=== PATIENT | female | born 1995 | race American Indian/Alaskan Native ===

== ENCOUNTER 2021-11-20 08:00 | Outpatient (CLI) | payer OTHER ==
[2021-11-09 15:35] LABS: Hematocrit 28.6 % (30.3-42.9); Hemoglobin 9.3 gm/dl (10.1-14.3); Mean Corpuscular HGB Conc 33 % (30-34); Mean Corpuscular Volume 81 fl (79-97); Platelet Count 226 K/mm3 (140-440); Red Blood Count 3.53 M/mm3 (3.65-5.03); Red Cell Distribution Width 15.4 % (13.2-15.2)
[2021-11-09 15:50] LABS: Alanine Aminotransferase 15 units/L (7-56); Uric Acid 8.8 mg/dL (3.5-7.6)
[2021-11-09 16:29] LABS: Bacteria,Urine 1+ /HPF (Negative); Bilirubin,Urine NEG (Negative); Blood,Urine NEG (Negative); Color,Urine Straw (Yellow); RBC,Urine < 1.0 /HPF (0.0-6.0); Urobilinogen,Urine < 2.0 mg/dL (<2.0)
[2021-11-09 17:18] VITALS: BP 138/94
[~2021-11-20 08:00] MED LIST: ACETAMINOPHEN 325 MG TAB PO PRN; BUTORPHANOL 2 MG/1 ML INJ IV PRN; CARBOPROST TROMETHAMINE 250 MCG/1 ML INJ IM PRN; LACTATED RINGERS 1,000 ML IV SCH; LIDOCAINE (2%) 20 MG/1 ML VIAL 20 ML MDV INFILTRATI ONE; LOPERAMIDE 2 MG CAP PO PRN; METHYLERGONOVINE MALEATE 0.2 MG/ML VIAL IM PRN; MINERAL OIL 30 ML ORAL LIQD PO PRN; OXYTOCIN 10 UNIT/1 ML INJ IM PRN; TERBUTALINE 1 MG/1 ML INJ SUB-Q PRN; ePHEDrine SULFATE 50 MG/1 ML INJ IV PRN; fentaNYL 100 MCG/2 ML INJ IV PRN; miSOPROStol 200 MCG TAB PR PRN
--- NOTE | 2021-11-21 09:39 | Short Stay Summary ---
Short Stay Documentation Date of service: 11/09/21 Narrative H&P: 26-year-old G5, P3 at 35+5 weeks who presents with elevated blood pressures. The patient presents to labor and delivery triage for evaluation for preeclampsia. - History Principal diagnosis: -induced hypertension Past Medical History: other (-induced hypertension) Past Surgical History: No surgical history Social history: no significant social history - Allergies and Medications Current Medications: Allergies phenazopyridine [From Pyridium] Allergy (Verified 11/09/21 15:21) Hives Home Medications Medication Instructions Recorded Confirmed Last Taken Type Aspirin 81 tab PO DAILY 11/09/21 11/09/21 11/08/21 13:00 History Iron 1 tab PO DAILY 11/09/21 11/09/21 Unknown History Vitamin 1 tab PO DAILY 11/09/21 11/09/21 11/08/21 13:00 History glyBURIDE [Diabeta] 2.5 mg PO DAILY 11/09/21 11/09/21 11/09/21 11:00 History - Physical exam General appearance: no acute distress Integumentary: no rash HEENT: Atraumatic Lungs: Clear to auscultation Breasts: deferred - Hospital course Hospital course: The patient was evaluated in triage for elevated blood pressures. She had normalization of her blood pressures on bedrest. PI labs were performed and were found to be normal. The patient was discharged with instructions to complete a 24-hour urine collection. - Disposition Condition at discharge: Good Disposition: 01 HOME / SELF CARE / HOMELESS Short Stay Discharge Plan Activity: other (Modified bedrest) Diet: regular Additional Instructions: 24 Hour urine collection ends on November 10, 2021 @ 03:27 pm. Return 24 hour urine jug to the hospital at [address] [place] [address]., [place] [address] on November 10, 2021. Follow up with: SOSA LOO MD [Primary Care Provider] - 7 Days Forms: [facility] Discharge Summary
== END 2021-11-20 08:01 | disposition home or self-care (01) ==
LOC: TRG 08:00 → EDSTATUS 11-21 15:55 → TRG 11-21 15:56
PROVIDERS: ATTEND Obstetrics & Gynecology
DX: O13.3 Gestational [pregnancy-induced] hypertension without significant proteinuria, third trimester (principal); Z3A.35 35 weeks gestation of pregnancy
CPT/HCPCS: 81001; 82565; 83615; 84156; 84450; 84460; 84550; 85027; 86592; 86850; 86900; 86901; G0378

== ENCOUNTER 2021-11-22 05:27 | Inpatient (IN) | payer OTHER, MEDICAID ==
[2021-11-22] MEDS ORDERED: ACETAMINOPHEN 325 MG TAB PO PRN (06:28)
[2021-11-22] MEDS ORDERED: OXYTOCIN 10 UNIT/1 ML INJ IM PRN (06:28)
[2021-11-22] MEDS ORDERED: miSOPROStol 25 MCG TAB VG ONE (06:28)
[2021-11-22] MEDS ORDERED: TERBUTALINE 1 MG/1 ML INJ SUB-Q PRN (06:28)
[2021-11-22] MEDS ORDERED: LIDOCAINE (2%) 20 MG/1 ML VIAL 20 ML MDV INFILTRATI ONE (06:28)
[2021-11-22] MEDS ORDERED: miSOPROStol 200 MCG TAB PR PRN (06:28)
[2021-11-22] MEDS ORDERED: fentaNYL 100 MCG/2 ML INJ IV PRN (06:28)
[2021-11-22] MEDS ORDERED: CARBOPROST TROMETHAMINE 250 MCG/1 ML INJ IM PRN (06:28)
[2021-11-22] MEDS ORDERED: ePHEDrine SULFATE 50 MG/1 ML INJ IV PRN (06:28)
[2021-11-22] MEDS ORDERED: NALOXONE 0.4 MG/1 ML INJ IV PRN (06:28)
[2021-11-22] MEDS ORDERED: LOPERAMIDE 2 MG CAP PO PRN (06:28)
[2021-11-22] MEDS ORDERED: ONDANSETRON 4 MG/2 ML INJ IV PRN (06:28)
[2021-11-22] MEDS ORDERED: MINERAL OIL 30 ML ORAL LIQD PO PRN (06:28)
[2021-11-22] MEDS ORDERED: BUTORPHANOL 2 MG/1 ML INJ IV PRN (06:28)
[2021-11-22] MEDS: LACTATED RINGERS 1,000 ML IV SCH ×3 (06:50→22:35)
[2021-11-22 06:57] LABS: Hemoglobin 9.7 gm/dl (10.1-14.3); Mean Corpuscular HGB Conc 31 % (30-34); Mean Corpuscular Volume 82 fl (79-97); Platelet Count 219 K/mm3 (140-440); Red Blood Count 3.78 M/mm3 (3.65-5.03); Red Cell Distribution Width 16.7 % (13.2-15.2)
[2021-11-22] MEDS ORDERED: OXYTOCIN DRIP 30 UNITS/500 ML BAG IV SCH ×2 (07:00)
--- NOTE | 2021-11-22 08:26 | History and Physical Report ---
History of Present Illness Date of examination: 11/22/21 Date of admission: 11/22/21 05:27 Chief complaint: IOL secondary to Chtn and GDM History of present illness: 26 yo, @ 37.4 wks, initiated care with [place] [facility] Telephone Answering Service [facility] at 12.3 wks gestation. Her has been complicated by Type II DM (co-managed by [facility] specialist) and PIH. Reports to [facility] for scheduled IOL. +FM. Denies any VB or LOF. Labs: O+, antibody negative; rubella immune; VDRL negative; urine culture negative; HBsAg negative; HIV negative; GC/Chlamydia/Trichomonas negative; 24 hr urine 168/ 223; AST 18; ALT 10; GBS negative. Past History Past Medical History: diabetes (Type II) Past Surgical History: tonsillectomy Family/Genetic History: diabetes, other (Lupus) Social history: , lives with family, full code. denies: smoking, alcohol abuse, prescription drug abuse, IV drug use - Obstetrical History Expected Date of Delivery: 12/09/21 Actual Gestation: 37 Week(s) 4 Day(s) : 5 Para: 3 Hx # Term Pregnancies: 3 Number of Pregnancies: 0 Spontaneous Abortions: 1 Induced : 0 Number of Living Children: 3 #1 Infant Gender: Female year: 2,[birth year] Birthweight: 2.637 kg Method of Delivery: Vaginal Gestational age at delivery: 40 Complications: none #2 Gender: Female year: 2,[birth year] Birthweight: 3.289 kg Method of Delivery: Vaginal Complications: none #3 Gender: Female year: 2,019 Birthweight: 2.722 kg Method of Delivery: Vaginal Gestational age at delivery: 40 Complications: none Medications and Allergies Allergies Allergy/AdvReac Type Severity Reaction Status Date / Time phenazopyridine Allergy Hives Verified 11/09/21 15:21 [From Pyridium] Home Medications Medication Instructions Recorded Confirmed Last Taken Type Aspirin 81 tab PO DAILY 11/09/21 11/09/21 11/08/21 13:00 History Iron 1 tab PO DAILY 11/09/21 11/09/21 Unknown History Vitamin 1 tab PO DAILY 11/09/21 11/09/21 11/08/21 13:00 History glyBURIDE [Diabeta] 2.5 mg PO DAILY 11/09/21 11/09/21 11/09/21 11:00 History Active Meds: Active Medications Acetaminophen (Acetaminophen 325 Mg Tab) 650 mg PO Q4H PRN PRN Reason: Pain, Mild (1-3) Butorphanol Tartrate (Butorphanol 2 Mg/1 Ml Inj) 1 mg IV Q2H PRN PRN Reason: Pain, Moderate(4-6) LABOR PAIN Carboprost Tromethamine (Carboprost Tromethamine 250 Mcg/1 Ml Inj) 250 mcg IM ONCE PRN PRN Reason: Uterine Bleeding Ephedrine Sulfate (Ephedrine Sulfate 50 Mg/1 Ml Inj) 10 mg IV Q2M PRN PRN Reason: Hypotension Fentanyl (Fentanyl 100 Mcg/2 Ml Inj) 100 mcg IV Q2H PRN PRN Reason: Pain,Severe (7-10) LABOR PAIN Oxytocin/Sodium Chloride (Pitocin/Ns 30 Unit/500ml) 30 units in 500 mls @ 2 mls/hr IV TITR GATO; Protocol Lactated Ringer's (Lactated Ringers) 1,000 mls @ 125 mls/hr IV DIRECT GATO Last Admin: 11/22/21 06:50 Dose: 125 mls/hr Oxytocin/Sodium Chloride (Pitocin/Ns 30 Unit/500ml) 30 units in 500 mls @ 40 mls/hr IV TITR GATO; Protocol Loperamide HCl (Loperamide 2 Mg Cap) 2 mg PO ONCE PRN PRN Reason: give with Hemabate Mineral Oil (Mineral Oil 30 Ml Oral Liqd) 30 ml PO QHS PRN PRN Reason: Constipation Misoprostol (Misoprostol 200 Mcg Tab) 800 mcg WV ONCE PRN PRN Reason: Uterine Bleeding Naloxone HCl (Naloxone 0.4 Mg/1 Ml Inj) 0.1 mg IV Q2MIN PRN PRN Reason: Res Rate </= 8 or 02 SAT < 92% Ondansetron HCl (Ondansetron 4 Mg/2 Ml Inj) 4 mg IV Q8H PRN PRN Reason: Nausea And Vomiting Oxytocin (Oxytocin 10 Unit/1 Ml Inj) 10 unit IM ONCE PRN PRN Reason: Uterine Bleeding Terbutaline Sulfate (Terbutaline 1 Mg/1 Ml Inj) 0.25 mg SUB-Q ONCE PRN PRN Reason: Hyperstimulation/Hypertonicity Review of Systems All systems: negative Cardiovascular: edema (noted on lower abdomen with some tenderness noted in area) Genitourinary: no leakage of fluid - Vital Signs Vital signs: Vital Signs Temp Resp Pulse Ox 98.4 F 14 99 11/22/21 05:39 11/22/21 05:39 11/22/21 05:39 Temp Pulse Resp BP Pulse Ox 98.2 F 95 H 15 141/95 97 11/22/21 07:04 11/22/21 08:24 11/22/21 07:04 11/22/21 08:21 11/22/21 08:24 - Physical Exam Breasts: Positive: normal Cardiovascular: Normal S1 Lungs: Positive: Normal air movement Abdomen: Positive: tenderness (with some edema noted - lower abdomen), other (gravid) Uterus: Positive: enlarged (S=D) Extremities: Positive: normal Deep Tendon Reflex Grade: Normal +2 - Obstetrical FHR: category 1 Uterine Contraction Monitor Mode: External Cervical Dilatation: 1 (per RN) Cervical Effacement Percentage: 50 station: -4 Uterine Contraction Pattern: Irregular Uterine Tone Measurement Phase: Resting Uterine Contraction Intensity: Mild Results Result Diagrams: 11/22/21 06:00 Abnormal lab results 11/22/21 Range/Units 06:00 Hgb 9.7 L (10.1-14.3) gm/dl MCH 26 L (28-32) pg RDW 16.7 H (13.2-15.2) % All other labs normal. Assessment and Plan - Patient Problems (1) Type II diabetes mellitus Current Visit: Yes Status: Acute Qualifiers: Diabetes mellitus complication status: without complication Plan to address problem: Monitor blood glucose levels as ordered (2) Encounter for induction of labor Current Visit: Yes Status: Acute Plan to address problem: Continue cytotec as tolerated per orders Pain meds as desired per orders Anticipate
[2021-11-22] MEDS ORDERED: miSOPROStol 25 MCG TAB PO ONE (11:17)
--- NOTE | 2021-11-22 16:59 | Progress Note ---
Assessment and Plan - Patient Problems (1) Type II diabetes mellitus Current Visit: Yes Status: Acute Qualifiers: Diabetes mellitus complication status: without complication Plan to address problem: Monitor blood glucose levels as ordered (2) Encounter for induction of labor Current Visit: Yes Status: Acute Plan to address problem: S/P cytotec x 2 doses Allow to eat Initiate low-dose Pitocin as tolerated Pain meds as desired per orders Anticipate Subjective - Subjective Date of service: 11/22/21 Principal diagnosis: IOL secondary to DM Interval history: 26 yo, @ 37.4 wks, initiated care with [place] [facility] Accounts Adjustable Clerk at 12.3 wks gestation. Her has been complicated by Type II DM (co-managed by [facility] specialist) and PIH. Reports to [facility] for scheduled IOL. +FM. Denies any VB or LOF. Labs: O+, antibody negative; rubella immune; VDRL negative; urine culture negative; HBsAg negative; HIV negative; GC/Chlamydia/Trichomonas negative; 24 hr urine 168/ 223; AST 18; ALT 10; GBS negative. Patient reports: movement normal, contractions, no new complaints, no loss of fluid, no vaginal bleeding Objective - Vital Signs Vital Signs: Vital Signs - 12hr 11/22/21 11/22/21 11/22/21 05:39 05:56 06:00 Temperature 98.4 F Pulse Rate 87 97 H Respiratory 14 Rate Blood Pressure 131/68 Blood Pressure [Left] O2 Sat by Pulse 99 99 Oximetry 11/22/21 11/22/21 11/22/21 06:01 06:06 06:11 Temperature Pulse Rate 99 H 86 89 Respiratory Rate Blood Pressure Blood Pressure [Left] O2 Sat by Pulse 99 99 100 Oximetry 11/22/21 11/22/21 11/22/21 06:16 06:21 06:26 Temperature Pulse Rate 85 91 H 80 Respiratory Rate Blood Pressure Blood Pressure [Left] O2 Sat by Pulse 100 100 100 Oximetry 11/22/21 11/22/21 11/22/21 06:31 06:36 06:41 Temperature Pulse Rate 81 79 85 Respiratory Rate Blood Pressure Blood Pressure [Left] O2 Sat by Pulse 99 99 99 Oximetry 11/22/21 11/22/21 11/22/21 06:42 06:48 06:49 Temperature Pulse Rate 94 H 110 H Respiratory Rate Blood Pressure Blood Pressure [Left] O2 Sat by Pulse 93 76 L 98 Oximetry 11/22/21 11/22/21 11/22/21 06:54 06:59 07:04 Temperature 98.2 F Pulse Rate 85 86 90 Respiratory 15 Rate Blood Pressure Blood Pressure [Left] O2 Sat by Pulse 99 98 99 Oximetry 11/22/21 11/22/21 11/22/21 07:09 07:14 07:19 Temperature Pulse Rate 84 85 77 Respiratory Rate Blood Pressure Blood Pressure [Left] O2 Sat by Pulse 99 100 99 Oximetry 11/22/21 11/22/21 11/22/21 07:21 07:24 07:29 Temperature Pulse Rate 81 81 88 Respiratory Rate Blood Pressure Blood Pressure [Left] O2 Sat by Pulse 86 99 97 Oximetry 11/22/21 11/22/21 11/22/21 07:34 07:39 07:44 Temperature Pulse Rate 92 H 84 86 Respiratory Rate Blood Pressure Blood Pressure [Left] O2 Sat by Pulse 98 99 99 Oximetry 11/22/21 11/22/21 11/22/21 07:49 07:54 07:59 Temperature Pulse Rate 80 96 H 82 Respiratory Rate Blood Pressure Blood Pressure [Left] O2 Sat by Pulse 99 98 99 Oximetry 11/22/21 11/22/21 11/22/21 08:19 08:21 08:23 Temperature Pulse Rate 84 84 90 Respiratory Rate Blood Pressure 141/95 Blood Pressure [Left] O2 Sat by Pulse 97 94 Oximetry 11/22/21 11/22/21 11/22/21 08:24 08:29 08:30 Temperature Pulse Rate 95 H 101 H 100 H Respiratory Rate Blood Pressure Blood Pressure [Left] O2 Sat by Pulse 97 95 93 Oximetry 11/22/21 11/22/21 11/22/21 08:34 08:38 08:39 Temperature Pulse Rate 97 H 95 H 90 Respiratory Rate Blood Pressure Blood Pressure [Left] O2 Sat by Pulse 97 94 87 Oximetry 11/22/21 11/22/21 11/22/21 08:44 08:49 08:54 Temperature Pulse Rate 88 85 90 Respiratory Rate Blood Pressure Blood Pressure [Left] O2 Sat by Pulse 99 99 99 Oximetry 11/22/21 11/22/21 11/22/21 08:59 09:04 09:09 Temperature Pulse Rate 94 H 94 H 87 Respiratory Rate Blood Pressure Blood Pressure [Left] O2 Sat by Pulse 99 99 98 Oximetry 11/22/21 11/22/21 11/22/21 09:14 09:18 09:19 Temperature Pulse Rate 92 H 83 90 Respiratory Rate Blood Pressure 137/91 Blood Pressure [Left] O2 Sat by Pulse 99 100 Oximetry 11/22/21 11/22/21 11/22/21 09:24 09:29 09:34 Temperature Pulse Rate 87 96 H 85 Respiratory Rate Blood Pressure Blood Pressure [Left] O2 Sat by Pulse 98 98 100 Oximetry 11/22/21 11/22/21 11/22/21 09:52 09:57 10:02 Temperature Pulse Rate 87 82 Respiratory Rate Blood Pressure Blood Pressure [Left] O2 Sat by Pulse 100 98 98 Oximetry 11/22/21 11/22/21 11/22/21 10:07 10:12 10:17 Temperature Pulse Rate 79 78 84 Respiratory Rate Blood Pressure Blood Pressure [Left] O2 Sat by Pulse 98 98 98 Oximetry 11/22/21 11/22/21 11/22/21 10:18 10:22 10:27 Temperature Pulse Rate 85 79 89 Respiratory Rate Blood Pressure 142/93 Blood Pressure [Left] O2 Sat by Pulse 99 100 Oximetry 11/22/21 11/22/21 11/22/21 10:28 10:32 10:44 Temperature Pulse Rate 94 H 95 H 103 H Respiratory Rate Blood Pressure Blood Pressure [Left] O2 Sat by Pulse 0 L 99 97 Oximetry 11/22/21 11/22/21 11/22/21 10:49 10:54 10:59 Temperature Pulse Rate 82 82 83 Respiratory Rate Blood Pressure Blood Pressure [Left] O2 Sat by Pulse 98 99 99 Oximetry 11/22/21 11/22/21 11/22/21 11:04 11:09 11:14 Temperature Pulse Rate 79 80 82 Respiratory Rate Blood Pressure Blood Pressure [Left] O2 Sat by Pulse 99 98 99 Oximetry 11/22/21 11/22/21 11/22/21 11:19 11:24 11:29 Temperature 98.2 F Pulse Rate 81 87 77 Respiratory 15 Rate Blood Pressure 140/93 Blood Pressure 140/93 [Left] O2 Sat by Pulse 90 100 100 Oximetry 11/22/21 11/22/21 11/22/21 11:34 11:39 11:44 Temperature Pulse Rate 80 91 H 89 Respiratory Rate Blood Pressure Blood Pressure [Left] O2 Sat by Pulse 99 100 99 Oximetry 11/22/21 11/22/21 11/22/21 11:56 12:01 12:06 Temperature Pulse Rate 72 97 H 91 H Respiratory Rate Blood Pressure Blood Pressure [Left] O2 Sat by Pulse 100 100 98 Oximetry 11/22/21 11/22/21 11/22/21 12:11 12:16 12:18 Temperature Pulse Rate 90 85 90 Respiratory Rate Blood Pressure 130/87 Blood Pressure [Left] O2 Sat by Pulse 98 99 Oximetry 11/22/21 11/22/21 11/22/21 12:19 12:21 12:26 Temperature Pulse Rate 90 95 H 91 H Respiratory Rate Blood Pressure Blood Pressure [Left] O2 Sat by Pulse 93 99 98 Oximetry 11/22/21 11/22/21 11/22/21 12:31 12:36 12:41 Temperature Pulse Rate 93 H 88 92 H Respiratory Rate Blood Pressure Blood Pressure [Left] O2 Sat by Pulse 99 96 99 Oximetry 11/22/21 11/22/21 11/22/21 12:57 12:58 13:02 Temperature Pulse Rate 79 83 86 Respiratory Rate Blood Pressure Blood Pressure [Left] O2 Sat by Pulse 96 94 97 Oximetry 11/22/21 11/22/21 11/22/21 13:07 13:12 13:17 Temperature Pulse Rate 94 H 83 92 H Respiratory Rate Blood Pressure Blood Pressure [Left] O2 Sat by Pulse 99 99 97 Oximetry 11/22/21 11/22/21 11/22/21 13:18 13:22 13:27 Temperature Pulse Rate 95 H 92 H 95 H Respiratory Rate Blood Pressure 126/90 Blood Pressure [Left] O2 Sat by Pulse 94 94 90 Oximetry 11/22/21 11/22/21 11/22/21 13:50 13:55 14:00 Temperature Pulse Rate 93 H 106 H 91 H Respiratory Rate Blood Pressure Blood Pressure [Left] O2 Sat by Pulse 98 97 98 Oximetry 11/22/21 11/22/21 11/22/21 14:05 14:10 14:15 Temperature Pulse Rate 85 88 86 Respiratory Rate Blood Pressure Blood Pressure [Left] O2 Sat by Pulse 100 99 98 Oximetry 11/22/21 11/22/21 11/22/21 14:19 14:20 14:25 Temperature Pulse Rate 88 90 95 H Respiratory Rate Blood Pressure 138/83 Blood Pressure [Left] O2 Sat by Pulse 98 98 Oximetry 11/22/21 11/22/21 11/22/21 14:30 14:32 14:35 Temperature Pulse Rate 90 59 L 92 H Respiratory Rate Blood Pressure Blood Pressure [Left] O2 Sat by Pulse 99 79 L 98 Oximetry 11/22/21 11/22/21 11/22/21 14:40 14:45 15:03 Temperature Pulse Rate 99 H 90 93 H Respiratory Rate Blood Pressure Blood Pressure [Left] O2 Sat by Pulse 98 97 98 Oximetry 11/22/21 11/22/21 11/22/21 15:08 15:13 15:19 Temperature Pulse Rate 92 H 92 H 83 Respiratory Rate Blood Pressure 133/83 Blood Pressure [Left] O2 Sat by Pulse 98 99 100 Oximetry 11/22/21 11/22/21 11/22/21 15:24 15:29 15:34 Temperature Pulse Rate 101 H 92 H 85 Respiratory Rate Blood Pressure Blood Pressure [Left] O2 Sat by Pulse 100 100 100 Oximetry 11/22/21 11/22/21 11/22/21 15:39 15:44 15:49 Temperature Pulse Rate 84 85 94 H Respiratory Rate Blood Pressure Blood Pressure [Left] O2 Sat by Pulse 100 100 99 Oximetry 11/22/21 11/22/21 11/22/21 15:54 15:59 16:28 Temperature Pulse Rate 85 79 Respiratory Rate Blood Pressure Blood Pressure [Left] O2 Sat by Pulse 100 100 85 Oximetry 11/22/21 11/22/21 11/22/21 16:29 16:33 16:38 Temperature Pulse Rate 93 H 88 92 H Respiratory Rate Blood Pressure Blood Pressure [Left] O2 Sat by Pulse 86 99 98 Oximetry 11/22/21 11/22/21 11/22/21 16:43 16:48 16:53 Temperature Pulse Rate 91 H 83 103 H Respiratory Rate Blood Pressure Blood Pressure [Left] O2 Sat by Pulse 100 99 100 Oximetry - Exam Breasts: deferred Cardiovascular: Regular rate Lungs: Normal air movement FHR: category 1 Uterine Contraction Monitor Mode: External Cervical Dilatation: 1 (per RN) Cervical Effacement Percentage: 60 station: -3 Uterine Contraction Frequency (min): 4-5 Uterine Contraction Pattern: Irregular Uterine Tone Measurement Phase: Resting Uterine Contraction Intensity: Mild - Labs Labs: Abnormal Labs 11/22/21 11/22/2122 06:00 11:26 15:50 Hgb 9.7 L MCH 26 L RDW 16.7 H POC Glucose 68 L 111 H Laboratory Results - last 24 hr 11/22/21 11/22/21 11/22/21 06:00 06:00 06:00 WBC 5.5 RBC 3.78 Hgb 9.7 L Hct 31.0 MCV 82 MCH 26 L MCHC 31 RDW 16.7 H Plt Count 219 POC Glucose Syphilis IgG/IgM Ab Nonreactive SARS-CoV-2 (PCR) Blood Type O POSITIVE Antibody Screen Negative 11/22/21 11/22/21 11/22/21 07:11 09:15 11:26 WBC RBC Hgb Hct MCV MCH MCHC RDW Plt Count POC Glucose 78 68 L Syphilis IgG/IgM Ab SARS-CoV-2 (PCR) Negative Blood Type Antibody Screen 11/22/21 15:50 WBC RBC Hgb Hct MCV MCH MCHC RDW Plt Count POC Glucose 111 H Syphilis IgG/IgM Ab SARS-CoV-2 (PCR) Blood Type Antibody Screen
[2021-11-23] MEDS: LACTATED RINGERS 1,000 ML IV SCH (07:15)
[2021-11-23] MEDS ORDERED: ePHEDrine SULFATE 50 MG/1 ML INJ IV PRN (07:36)
[2021-11-23] MEDS ORDERED: NALOXONE 2 MG/2 ML INJ IV PRN (07:36)
[2021-11-23] MEDS ORDERED: fentaNYL-BUPIV 2 MCG/ML-0.125% 200 MCG/100 ML BAG EPIDURAL SCH (08:00)
[2021-11-23] MEDS ORDERED: BUPIVACAINE/PF (0.25%) 2.5 MG/ML 10 ML VIAL INFILTRATI ONE (08:50)
--- NOTE | 2021-11-23 09:10 | Anesthesia Consultation ---
Anesthesia Consult and Med Hx Date of service: 11/23/21 - Airway Anesthetic Teeth Evaluation: Good ROM Head & Neck: Adequate Mental/Hyoid Distance: Adequate Mallampati Class: Class II Intubation Access Assessment: Probably Good - Pre-Operative Health Status ASA Pre-Surgery Classification: ASA3 Proposed Anesthetic Plan: Epidural - Pulmonary Hx Smoking: No Hx Asthma: No Hx Sleep Apnea: No - Cardiovascular System Hx Hypertension: Yes Hx Heart Attack/AMI: No - Central Nervous System Hx Neuromuscular Disorder: No Hx Seizures: No Hx Psychiatric Problems: No - Gastrointestinal Hx Gastroesophageal Reflux Disease: No - Endocrine Hx Renal Disease: No Hx Liver Disease: No Hx Non-Insulin Dependent Diabetes: Yes (gestationial) Hx Hypothyroidism: No Hx Hyperthyroidism: No - Hematic Hx Anemia: No Hx Sickle Cell Disease: No - Other Systems Hx Alcohol Use: No Hx Substance Use: No Hx Cancer: No Hx Obesity: Yes (BMI 34)
--- NOTE | 2021-11-23 09:13 | Progress Note ---
Labor Epidural - Labor Epidural Start Time: 08:21 Stop Time: 08:50 Performed by:: CONRAD OG (GUILLERMO Lim) Procedure: Patient is requesting epidural for labor pain. H&P and labs reviewed. Procedure explained, questions answered, consent obtained. Patient placed in sitting position with monitors applied. Timeout performed immediately before start of procedure. Prep/drape in usual sterile fashion. Skin localized 3 mL 1% lidocaine at L[3]-L-4] interspace. 17-gauge Touhy epidural needle advanced to MATY with saline at [7] cm x 2 attempt. No blood/CSF noted via epidural needle. Epidural catheter advanced to [12] cm. Negative aspiration for blood and CSF via catheter, negative response to test dose 3 ml 1.5% lidocaine w/ Epi. Sterile dressing applied followed by tape reinforcement. Patient tolerated procedure well. No immediate complications noted.
--- NOTE | 2021-11-23 09:50 | Procedure Note ---
OB Delivery Note - Delivery Date of Delivery: 11/23/21 Surgeon: SOSA LOO Estimated blood loss: other (400 mL) - Vaginal Delivery presentation: vertex Delivery position: OA Intrapartum events: none, uterine atony Delivery augmentation: pitocin Delivery monitor: external FHT, external uterine Route of delivery: Delivery placenta: spontaneous Delivery cord: nuchal cord, 3 umbilical vessels Episiotomy: none Delivery laceration: none Anesthesia: epidural Delivery comments: The patient progressed to complete complete +1 post to deliver a live-born male with Apgars of 8 and 9 weight 8 pounds 2 ounces. After delivery of the head the infant was noted to have a double nuchal cord that was manually reduced. Delivery of the anterior shoulder occurred with gentle downward pressure. After delivery the infant was bulb suctioned cord was clamped and cut and the was placed on the warmer. The placenta delivered spontaneously intact with a three-vessel cord. No lacerations were noted. The patient was noted to have uterine atony after the delivery with estimated blood loss of 400 mL that resolved with rectal Cytotec and uterine massage. - A at 1 minute: 8 at 5 minutes: 9 Gender: Male (Weight 8 pounds 2 ounces)
[2021-11-23] MEDS ORDERED: diphenhydrAMINE 25 MG CAP PO PRN (09:51)
[2021-11-23] MEDS ORDERED: MAGNESIUM HYDROXIDE (MOM) ORAL LIQD UDC PO PRN (09:51)
[2021-11-23] MEDS ORDERED: PROMETHAZINE 25 MG RECT SUPP PR PRN (09:51)
[2021-11-23] MEDS ORDERED: LANOLIN/ZINC/DIMETHICONE (LANSINOH) 7 GM TP PRN (09:51)
[2021-11-23] MEDS ORDERED: ONDANSETRON 4 MG/2 ML INJ IV PRN (09:51)
[2021-11-23] MEDS ORDERED: WITCH HAZEL/ GLYCERIN PAD TP PRN (09:51)
[2021-11-23] MEDS ORDERED: PROMETHAZINE 25 MG TAB PO PRN (09:51)
[2021-11-23] MEDS ORDERED: ACETAMINOPHEN 325 MG TAB PO PRN (09:52)
[2021-11-23] MEDS ORDERED: HYDROcodone/ACETAMINOPHEN 5-325 MG TAB PO PRN (09:52)
[2021-11-23] MEDS: IBUPROFEN 800 MG TAB PO SCH (10:46)
--- NOTE | 2021-11-23 11:11 | Post Anesthesia Evaluation ---
- Post Anesthesia Evaluation Patient Participated: Yes Airway Patent: Yes Stable Respiratory Function: Yes Nausea/Vomiting: No Temp > 96.8F: Yes Pain Manageable: Yes Adequeate Hydration: Yes Anesthesia Complications: No Block Receding Appropriately: Yes Patient on Ventilator: No
[2021-11-23 20:50] LABS: Hemoglobin 7.3 gm/dl (10.1-14.3)
[2021-11-24] MEDS: IBUPROFEN 800 MG TAB PO SCH ×4 (00:37→23:08)
[2021-11-24] MEDS ORDERED: TETANUS,DIPH,PERTUSS(ACELL) VACCINE 0.5 ML SYRINGE IM ONE (06:00)
[2021-11-24] MEDS ORDERED: FLU VACC QUAD 2021-22(6MOS UP)/PF 60 MCG/0.5 ML SYRINGE IM ONE (12:00)
--- NOTE | 2021-11-24 12:48 | Discharge Summary ---
Providers - Providers Date of Admission: 11/22/21 06:28 Date of discharge: 11/25/21 Attending physician: GALILEO HERZOG Primary care physician: GALILEO HERZOG Hospitalization Reason for admission: induction of labor Delivery: Episiotomy: none Laceration: none Other procedures: none complications: none Discharge diagnosis: IUP at term delivered, other (anemia) baby: male Hospital course: 26 yo, @ 37.4 wks, initiated care with [place] [facility] Scheduling Agent at 12.3 wks gestation. Her has been complicated by Type II DM (co-managed by [facility] specialist) and PIH. Reports to [facility] for scheduled IOL. +FM. Denies any VB or LOF. Labs: O+, antibody negative; rubella immune; VDRL negative; urine culture negative; HBsAg negative; HIV negative; GC/Chlamydia/Trichomonas negative; 24 hr urine 168/ 223; AST 18; ALT 10; GBS negative. Delivered viable male infant via . course has been uncomplicated and met d/c criteria on PPD#2. Condition at discharge: Good Disposition: 01 HOME / SELF CARE / HOMELESS - Discharge Diagnoses (1) Type II diabetes mellitus Status: Acute Qualifiers: Diabetes mellitus complication status: without complication (2) Status post normal vaginal delivery Status: Acute (3) Anemia Status: Acute Qualifiers: Anemia type: iron deficiency Comment: Asymptomatic Increase iron rich foods into diet Continue daily iron supplementation as directed Plan - Discharge Medications Prescriptions: Ibuprofen [Motrin 800 MG tab] 800 mg PO Q8HR #30 tablet - Provider Discharge Summary Activity: routine, no sex for 6 weeks, no heavy lifting 4 weeks, no strenuous exercise Diet: other (Iron rich diet) Additional instructions: [] Smoking cessation referral if applicable(refer to patient education folder for contact #) [] Refer to [facility] Booklet Call your doctor immediately for: * Fever > 100.5 * Heavy vaginal bleeding ( >1 pad per hour) * Severe persistent headache * Shortness of breath * Reddened, hot, painful area to leg or breast - Follow up plan Follow up: GALILEO HERZOG MD [Primary Care Provider] - 6 Weeks
[2021-11-25] MEDS: IBUPROFEN 800 MG TAB PO SCH ×2 (05:27→11:11)
[2021-11-25] MEDS ORDERED: FLU VACC QUAD 2021-22(6MOS UP)/PF 60 MCG/0.5 ML SYRINGE IM ONE (09:00)
[2021-11-25 12:51] VITALS: BP 119/76
== END 2021-11-25 14:10 | disposition home or self-care (01) | DRG 807 ==
LOC: LD 05:27 → UNDOADMIN 05:27 → LD 06:28 → OB 11-23 15:13
PROVIDERS: ADMIT Obstetrics & Gynecology; ATTEND Obstetrics & Gynecology
PROC: 10E0XZZ Delivery of Products of Conception, External Approach (ICD-10-PCS; principal; 2021-11-23)
PROC: 3E0R3BZ Introduction of Anesthetic Agent into Spinal Canal, Percutaneous Approach (ICD-10-PCS; 2021-11-23)
PROC: 00HU33Z Insertion of Infusion Device into Spinal Canal, Percutaneous Approach (ICD-10-PCS; 2021-11-23)
PROC: 3E0234Z Introduction of Serum, Toxoid and Vaccine into Muscle, Percutaneous Approach (ICD-10-PCS; 2021-11-24)
DX: O24.429 Gestational diabetes mellitus in childbirth, unspecified control (principal); Z37.0 Single live birth; O69.81X0 Labor and delivery complicated by cord around neck, without compression, not applicable or unspecified; Z3A.37 37 weeks gestation of pregnancy; Z20.822 Contact with and (suspected) exposure to COVID-19; Z23 Encounter for immunization; O13.4 Gestational [pregnancy-induced] hypertension without significant proteinuria, complicating childbirth; O90.81 Anemia of the puerperium; Z88.8 Allergy status to other drugs, medicaments and biological substances
CPT/HCPCS: 36415; 81001; 82565; 82962; 83615; 84156; 84450; 84460; 84550; 85014; 85018; 85027; 86592; 86850; 86900; 86901; 90471; 90686; 90715; G0378; G0008; J0595; J2590; J7120; U0003